=== PATIENT | male | born 1945 | race Caucasian/White ===

== ENCOUNTER → 2017-06-08 | Outpatient (CLI) | payer MEDICARE, BC ==
[~2017-06-08] MED LIST: DIAZ10TA PO; DIAZ5TAB PO; GLUC1500 PO; LACT1CAP35 PO; LISI40TA PO; MELA1TAB22 PO; MIRT30TA4 PO; OXYC-302 PO; PROP80TA PO; RANI150T8 PO; xarelto PO
== END | disposition home or self-care (01) ==
LOC: CFH 12:58
PROVIDERS: ATTEND Otolaryngology
DX: E04.1 Nontoxic single thyroid nodule (principal); D49.7 Neoplasm of unspecified behavior of endocrine glands and other parts of nervous system
CPT/HCPCS: 76536